=== PATIENT | male | born 1995 | race Caucasian/White ===

== ENCOUNTER 2020-09-05 03:01 | Emergency (ER) | payer MEDICAID ==
[~2020-09-05] VITALS: Ht 190.5 cm; Wt 77.1 kg
[2020-09-05 03:15] VITALS: BP 131/83
--- NOTE | 2020-09-05 03:18 | NUR ---
TO LOBBY A/W BED AMBULATORY
[2020-09-05 03:35] VITALS: BP 131/83
--- NOTE | 2020-09-05 04:30 | NUR ---
SEEN AND EXAMINED BY EUGENE WITH ORDERS , CARRIED OUT.
--- NOTE | 2020-09-05 04:40 | NUR ---
PT TAKEN TO RADIOLOGY
--- NOTE | 2020-09-05 06:15 | NUR ---
Patient discharged with v/s stable. Written and verbal after care instructions given and explained. Patient verbalized understanding. Ambulatory with steady gait. All questions addressed prior to discharge. Advised to follow up with PMD.
== END 2020-09-05 06:15 | disposition home or self-care (01) ==
LOC: MED 03:01
DX: M79.602 Pain in left arm (principal); W22.8XXA Striking against or struck by other objects, initial encounter; Y93.89 Activity, other specified; Y92.89 Other specified places as the place of occurrence of the external cause; Y99.8 Other external cause status
CPT/HCPCS: 73120; 99283

== ENCOUNTER 2020-09-19 15:16 | Emergency (ER) | payer MEDICAID ==
--- NOTE | 2020-09-19 15:54 | NUR ---
PATIENT LEFT WITHOUT BEING SEEN BY DR. Singleton. NO FURTHER CARE PROVIDED FOR PATIENT.
== END 2020-09-19 15:54 | disposition left against medical advice (07) ==
LOC: MED 15:16
DX: M79.646 Pain in unspecified finger(s) (principal); Z53.21 Procedure and treatment not carried out due to patient leaving prior to being seen by health care provider

== ENCOUNTER 2020-11-14 01:10 | Emergency (ER) | payer MEDICAID ==
[~2020-11-14] VITALS: Ht 190.5 cm; Wt 64.5 kg
[2020-11-14 01:15] VITALS: BP 126/72
--- NOTE | 2020-11-14 01:22 | NUR ---
PT AMBULATED TO BED 7.
[2020-11-14] MEDS ORDERED: BENZOCAINE 20% 57 GM CAN MC ONE (01:35)
--- NOTE | 2020-11-14 01:45 | NUR ---
STREP CULTURE AND RAPID STREP COLLECTED AT THIS TIME. WALKED TO LAB.
--- NOTE | 2020-11-14 02:10 | NUR ---
LAB CALLED FOR POSITIVE STREP A. NURSE NOTIFIED.
[2020-11-14] MEDS ORDERED: CLIN300C7 PO (02:36)
[2020-11-14] MEDS ORDERED: IBUP-2213 PO (02:36)
[2020-11-14] MEDS ORDERED: ALBU0.0912 IH (02:37)
[2020-11-14 02:40] VITALS: BP 126/72
--- NOTE | 2020-11-14 02:40 | NUR ---
Patient discharged with v/s stable. Written and verbal after care instructions given and explained. Patient alert, oriented and verbalized understanding of instructions. Ambulatory with steady gait. All questions addressed prior to discharge. ID band removed. Patient advised to follow up with PMD. Rx of albuterol sulfate, clindamycin, ibuprofen given. Patient educated on indication of medication including possible reaction and side effects. Opportunity to ask questions provided and answered.
== END 2020-11-14 02:40 | disposition home or self-care (01) ==
LOC: MED 01:10
DX: J02.0 Streptococcal pharyngitis (principal); J45.909 Unspecified asthma, uncomplicated; F17.210 Nicotine dependence, cigarettes, uncomplicated; Z79.899 Other long term (current) drug therapy
CPT/HCPCS: 87081; 99283